=== PATIENT | female | born 1990 | race African-American/Black ===

== ENCOUNTER 2017-07-12 10:44 | Emergency (ER) | payer MEDICAID ==
[~2017-07-12] VITALS: Ht 167.6 cm; Wt 60.0 kg
[~2017-07-12 10:44] MED LIST: TRAZODONE
[2017-07-12 11:00] VITALS: BP 131/89
== END 2017-07-12 12:45 | disposition left against medical advice (07) ==
LOC: ER 12:09
DX: F99 Mental disorder, not otherwise specified (principal); F31.9 Bipolar disorder, unspecified; F20.9 Schizophrenia, unspecified
CPT/HCPCS: 99283

== ENCOUNTER 2017-07-16 23:26 | Emergency (ER) | payer MEDICAID, OTHER ==
[~2017-07-16] VITALS: Ht 167.6 cm; Wt 70.0 kg
[2017-07-17 00:42] VITALS: BP 117/52
[2017-07-17 01:39] LABS: BASOPHILS % 0.6 % (0.0-2.0); HEMATOCRIT. 39.2 % (36.0-48.0); HEMOGLOBIN. 13.1 g/dL (12.0-16.0); LYMPHOCYTES % 34.5 % (20.0-50.0); MEAN CORPUSCULAR HEMOGLOBIN 29.3 pg (28.0-32.0); MEAN CORPUSCULAR VOLUME 87.9 fL (81.0-99.0); MEAN PLATELET VOLUME 9.3 fl (7.4-10.4); NEUTROPHILS % 55.9 % (40.0-76.0); PLATELET 235 x1000/uL (130-400); RED BLOOD CELL COUNT 4.46 mill/uL (4.2-5.4); RED CELL DISTRIBUTION WIDTH 14.7 % (11.6-14.6)
[2017-07-17 01:46] LABS: CHLORIDE 103 mEq/L (98-107)
[2017-07-17 01:52] LABS: CARBON DIOXIDE 28 mEq/L (21-32); ETHANOL BLOOD < 10 mg/dL
[2017-07-17] MEDS ORDERED: IBUPROFEN 600MG TABLET PO ONE (02:45)
[2017-07-17 03:14] LABS: CLARITY URINE CLOUDY (CLEAR); COLOR URINE DARK YELLOW (YELLOW); GLUCOSE URINE NEGATIVE (NEGATIVE); KETONES URINE 1+ (NEGATIVE); LEUKOCYTE ESTERASE URINE 1+ (NEGATIVE); NITRITE URINE NEGATIVE (NEGATIVE); OCCULT BLOOD URINE NEGATIVE (NEGATIVE); PROTEIN URINE TRACE (NEGATIVE); SPECIFIC GRAVITY URINE 1.036 (1.005-1.030)
[2017-07-17 03:39] LABS: *BARBITURATES SCREEN URINE NEGATIVE (NEGATIVE); *BENZODIAZEPINES SCREEN URINE NEGATIVE (NEGATIVE); *COCAINE SCREEN URINE NEGATIVE (NEGATIVE); METHADONE URINE SCREEN NEGATIVE (NEGATIVE); OPIATES URINE SCREEN NEGATIVE (NEGATIVE); PHENCYCLIDINE URINE SCREEN NEGATIVE (NEGATIVE)
[2017-07-17 03:45] LABS: *AMPHETAMINES SCREEN URINE PRESUMTIVE POSITIVE (NEGATIVE); CANNABINOID URINE SCREEN PRESUMTIVE POSITIVE (NEGATIVE)
== END 2017-07-17 03:59 | disposition home or self-care (01) ==
LOC: ER 23:26
DX: K12.0 Recurrent oral aphthae (principal); N39.0 Urinary tract infection, site not specified; R23.8 Other skin changes; E11.9 Type 2 diabetes mellitus without complications; Z48.00 Encounter for change or removal of nonsurgical wound dressing
CPT/HCPCS: 36415; 80048; 80305; 80307; 80329; 81001; 81025; 85025; 99284; G0482

== ENCOUNTER 2017-10-16 11:11 | Emergency (ER) | payer MEDICAID ==
[~2017-10-16] VITALS: Ht 162.6 cm; Wt 68.0 kg
[2017-10-16 11:12] VITALS: BP 148/95
[2017-10-16 14:21] LABS: GLUCOSE URINE NEGATIVE (NEGATIVE); KETONES URINE 1+ (NEGATIVE); LEUKOCYTE ESTERASE URINE 2+ (NEGATIVE); NITRITE URINE POSITIVE (NEGATIVE); OCCULT BLOOD URINE 3+ (NEGATIVE); PH URINE 5.5 (4.5-8.0); PROTEIN URINE 3+ (NEGATIVE); SPECIFIC GRAVITY URINE 1.037 (1.005-1.030)
[2017-10-16 14:22] LABS: BASOPHILS % 0.5 % (0.0-2.0); EOSINOPHILS % 1.4 % (0.0-5.0); HEMATOCRIT. 39.5 % (36.0-48.0); HEMOGLOBIN. 13.2 g/dL (12.0-16.0); LYMPHOCYTES % 25.4 % (20.0-50.0); MEAN CORPUSCULAR HEMOGLOBIN 29.7 pg (28.0-32.0); MEAN CORPUSCULAR VOLUME 88.6 fL (81.0-99.0); MEAN PLATELET VOLUME 8.5 fl (7.4-10.4); MONOCYTES % 6.6 % (2.0-8.0); NEUTROPHILS % 66.1 % (40.0-76.0); PLATELET 246 x1000/uL (130-400); RED BLOOD CELL COUNT 4.46 mill/uL (4.2-5.4); RED CELL DISTRIBUTION WIDTH 13.8 % (11.6-14.6)
[2017-10-16 14:22] LABS: CLARITY URINE TURBID (CLEAR); COLOR URINE BLOODY (YELLOW)
[2017-10-16 14:39] LABS: CARBON DIOXIDE 27 mEq/L (21-32); CHLORIDE 103 mEq/L (98-107); ETHANOL BLOOD < 10 mg/dL
[2017-10-16 14:53] LABS: HCG SCREEN NEGATIVE
[2017-10-16 14:55] LABS: *BARBITURATES SCREEN URINE NEGATIVE (NEGATIVE); *BENZODIAZEPINES SCREEN URINE NEGATIVE (NEGATIVE); *COCAINE SCREEN URINE NEGATIVE (NEGATIVE); METHADONE URINE SCREEN NEGATIVE (NEGATIVE); PHENCYCLIDINE URINE SCREEN NEGATIVE (NEGATIVE)
[2017-10-16 15:02] LABS: *AMPHETAMINES SCREEN URINE PRESUMTIVE POSITIVE (NEGATIVE); CANNABINOID URINE SCREEN PRESUMTIVE POSITIVE (NEGATIVE); OPIATES URINE SCREEN PRESUMTIVE POSITIVE (NEGATIVE)
== END 2017-10-16 15:43 | disposition home or self-care (01) ==
LOC: ER 11:18
DX: F99 Mental disorder, not otherwise specified (principal); N39.0 Urinary tract infection, site not specified; R44.1 Visual hallucinations; E11.9 Type 2 diabetes mellitus without complications
CPT/HCPCS: 36415; 80053; 80305; 80307; 80329; 81001; 84703; 85025; 87086; 99284; G0482

== ENCOUNTER 2017-10-16 19:35 | Emergency (ER) | payer MEDICAID ==
[~2017-10-16] VITALS: Ht 170.2 cm; Wt 72.0 kg
[2017-10-16 21:09] VITALS: BP 134/72
== END 2017-10-17 01:49 | disposition home or self-care (01) ==
LOC: ER 19:53
DX: Z04.8 Encounter for examination and observation for other specified reasons (principal); F20.9 Schizophrenia, unspecified; F17.210 Nicotine dependence, cigarettes, uncomplicated; Z59.0 Homelessness
CPT/HCPCS: 99283

== ENCOUNTER 2017-10-17 23:58 | Emergency (ER) | payer MEDICAID ==
[~2017-10-17] VITALS: Ht 177.8 cm; Wt 64.0 kg
[2017-10-18 00:02] VITALS: BP 131/71
== END 2017-10-18 03:25 | disposition left against medical advice (07) ==
LOC: ER 23:59
DX: R07.9 Chest pain, unspecified (principal); Z53.21 Procedure and treatment not carried out due to patient leaving prior to being seen by health care provider

== ENCOUNTER 2017-12-04 21:45 | Emergency (ER) | payer MEDICAID | END 2017-12-04 22:07 | disposition left against medical advice (07) | LOC: ER 21:57 | DX: Z53.21 Procedure and treatment not carried out due to patient leaving prior to being seen by health care provider (principal) ==

== ENCOUNTER 2017-12-07 14:17 | Emergency (ER) | payer MEDICAID ==
[~2017-12-07] VITALS: Ht 165.1 cm; Wt 60.0 kg
[2017-12-07 14:25] VITALS: BP 136/85
== END 2017-12-07 17:18 | disposition left against medical advice (07) ==
LOC: ER 14:54
DX: Z00.8 Encounter for other general examination (principal); Z53.21 Procedure and treatment not carried out due to patient leaving prior to being seen by health care provider

== ENCOUNTER 2017-12-07 17:12 | Emergency (ER) | payer MEDICAID ==
[~2017-12-07] VITALS: Ht 167.6 cm; Wt 80.0 kg
[2017-12-07 17:22] VITALS: BP 126/66
== END 2017-12-07 19:30 | disposition left against medical advice (07) ==
LOC: ER 17:41
DX: R51 Headache (principal); Z53.21 Procedure and treatment not carried out due to patient leaving prior to being seen by health care provider

== ENCOUNTER 2017-12-10 04:49 | Emergency (ER) | payer MEDICAID ==
[~2017-12-10] VITALS: Ht 162.6 cm; Wt 57.0 kg
[2017-12-10 04:58] VITALS: BP 118/74
== END 2017-12-10 09:08 | disposition left against medical advice (07) ==
LOC: ER 04:49
DX: Z76.0 Encounter for issue of repeat prescription (principal); Z53.21 Procedure and treatment not carried out due to patient leaving prior to being seen by health care provider